=== PATIENT | male | born 1990 | race Caucasian/White ===

== ENCOUNTER 2017-04-08 04:09 | Emergency (ER) | payer BC, OTHER ==
[~2017-04-08] VITALS: Ht 172.7 cm; Wt 80.0 kg
[2017-04-08 04:12] VITALS: Ht 172.7 cm; Wt 80.0 kg
[2017-04-08] MEDS ORDERED: LIDOCAINE 1%/EPI 30 ML INJ INJ STA (04:52)
[2017-04-08] MEDS ORDERED: DIPHTH/TET/ACEL PERTUSS (ADULT) 0.5 ML VIAL IM ONE (05:00)
[2017-04-08] MEDS ORDERED: CEPH-443 PO (05:33)
--- NOTE | 2017-04-08 05:33 | ERD ---
ER Documentation Chief Complaint Date/Time DATE: 04/08/17 TIME: 05:33 Chief Complaint chin laceration, sp ground level fall HPI Patient is a 26-year-old male with no past medical history who presents emergency department for concerns of a laceration to his chin. Patient states that he was out at a bar when he slipped and hit his chin. Patient states that he had 3-4 alcoholic beverages. Patient states he was in the bathroom at the time. Patient states that he hit his chin on the bathroom countertop. Patient denies any nausea, vomiting, loss of consciousness. Patient states his last tetanus vaccination was within the last 5 years. Patient's friend is present with him and states that the patient is acting appropriately. Patient has no acute confusion or excessive sleepiness. Patient denies any chest pain, shortness breath, abdominal pain. ROS All systems reviewed and are negative except as per history of present illness. Medications Home Meds Active Scripts Cephalexin* (Keflex*) 500 Mg Capsule, 500 MG PO TID for 7 Days, CAP Prov:MARILYN THORNTON PA-C 04/08/17 Allergies Allergies: Coded Allergies: No Known Drug Allergies (Verified Allergy, Mild, 12/30/10) Uncoded Allergies: PORK (Allergy, Mild, 03/20/11) PMhx/Soc Medical and Surgical Hx: pt denies Medical Hx History of Surgery: Yes (Gallbladder ) Anesthesia Reaction: No Hx Neurological Disorder: No Hx Respiratory Disorders: No Hx Cardiac Disorders: No Hx Psychiatric Problems: No Hx Miscellaneous Medical Probl: No Hx Alcohol Use: Yes Hx Substance Use: No Hx Tobacco Use: No Smoking Status: Never smoker Physical Exam Vitals Vital Signs Date Time Temp Pulse Resp B/P Pulse Ox O2 Delivery O2 Flow Rate FiO2 04/08/17 06:02 98.3 72 16 122/62 100 Room Air 04/08/17 04:12 97.8 86 20 142/90 100 Physical Exam GENERAL: Well-developed, well-nourished male. Appears in no acute distress. Speaking in full sentences. HEAD: Normocephalic, atraumatic. No scalp lacerations or hematomas noted. EYES: Pupils are equally reactive bilaterally. EOMs grossly intact. No conjunctival erythema. ENT: Moist mucous membranes. No uvula deviation. No kissing tonsils. No chip teeth. Teeth intact. No trismus. NECK: Supple. No meningismus. Normal range of motion of the neck. No cervical midline tenderness. LUNG: Clear to auscultation bilaterally. No rhonchi, wheezing, rales or coarse breath sounds. HEART: Regular rate and rhythm. No murmurs, rubs or gallops. BACK: No midline tenderness. EXTREMITIES: Equal pulses bilaterally. No peripheral clubbing, cyanosis or edema. No unilateral leg swelling. NEUROLOGIC: Alert and oriented x3, cooperative. Mood and affect appropriate to situation. Cranial nerves II through XII are grossly intact. Normal speech. Motor exam: 5/5 strength in upper and lower extremities. Sensory exam: Sensation intact to light touch on all four extremities. Steady gait. No pronator drift SKIN:Curved 3 cm laceration noted to the patient's chin. Minimal active bleeding. Results 24 hrs Current Medications Medications (Trade) Dose Ordered Sig/Opal Route PRN Reason Start Time Stop Time Status Last Admin Dose Admin Diphtheria/ Tetanus/Acell Pertussis (Adacel) 0.5 ml ONCE ONCE IM 04/08/17 05:00 04/08/17 05:01 DC Lidocaine/ Epinephrine (Xylocaine 1%/ Epi (Pf)) 30 ml ONCE STAT INJ 04/08/17 04:52 04/08/17 04:54 DC 04/08/17 04:59 Procedures/MDM ED COURSE: The patient was stable throughout ED course. I kept the patient and/or family informed of laboratory and diagnostic imaging results throughout the ED course. DIAGNOSTIC IMAGING: Read by radiologist. Patient: TROY ORELLANA : 1990 Age: 26 Sex: M [id number] DOS: 04/08/17 0440 Ordering MD: MARILYN THORNTON PA-C Location: E Room/Bed: PROCEDURE: CT BRAIN WITHOUT CONTRAST CLINICAL INDICATION: 26-year-old male with trauma. TECHNIQUE: The study was performed utilizing a ElpasT 64-slice CT scanner. Direct axial sections were obtained from the foramen magnum to the vertex without the use of intravenous contrast material. Sagittal and coronal reformations were obtained. One or more the following dose reduction techniques were utilized: automated exposure control, adjustment of the mA and/or kV according to patient's size or use of iterative reconstruction technique. The images were viewed on a PACS workstation. CTD/vol = 43.9 mGy; Total Exam DLP = 720.2 mGy-cm. COMPARISON: None. FINDINGS: The ventricles have a normal size, shape and position. There is no evidence for mass effect or midline shift. There are no intracranial areas of abnormal attenuation. There is no evidence for acute intra or extra-axial blood. The bony calvarium is intact. The partially visualized paranasal sinuses and mastoid air cells are without significant abnormal soft tissue. IMPRESSION: Unremarkable noncontrast CT scan of the brain. .Joao Hernandez MD, MD Date Time Electronically viewed and signed by .Joao Hernandez MD, MD on 04/08/2017 05:47 .M/ CC: MARILYN THORNTON PA-C PROCEDURES: Laceration Repair: The patient was verbally consented prior to procedure. Patient was explained the risks, benefits and alternatives to this procedure. Length: 3 cm Location: chin Irrigation: Thorough irrigation was performed with normal saline and adequate pressure. Inspection: The wound was thoroughly explored and no foreign bodies, deep tissue , tendon or structural injuries were noted. Anesthesia: 5 cc lidocaine with epi Repair: The area was prepared and draped in the usual sterile manner with the wound exposed. 5 sutures were placed with good wound closure and wound approximation. Bleeding was minimal. The patient tolerated the procedure well with no complications. The wound was dressed with bacitracin and sterile gauze. The patient was neurovascularly intact post-procedure. Post-procedural wound care was discussed with the patient. MEDICAL DECISION MAKING: This is a 26-year-old male presents with a laceration to his chin after slip and fall injury while in the bathroom at a bar. Vital signs were reviewed. Patient was afebrile. The wound was cleansed thoroughly and closed using 5 sutures. The patient had good wound closure and wound approximation. Patient tolerated wound closure without any complications. Patient reported that his last tetanus vaccination was within the last 5 years. Tetanus appears to be up- to-date at this time. Even that patient did hit his head, CT scan of the patient's head was obtained. CT scan was negative. Patient will be empirically treated with course of antibiotics. PRESCRIPTIONS: Keflex DISCHARGE: At this time, the patient is stable for discharge and outpatient management. Patient was discharge along with friend. Patient was able to ambulate without any difficulty. Patient was alert and oriented x3. Strict head injury return precautions discussed. Post-procedural wound care was discussed with the patient. The patient has been advised to return to the ER in 2 days for a wound check. I have instructed the patient to promptly return to the ER for any new or worsening symptoms including increasing pain, fever, warmth, redness or swelling. The patient and/or family expressed understanding of and agreement with this plan. All questions were answered. Home care instructions were provided. Departure Diagnosis: Primary Impression: Laceration Condition: Stable Patient Instructions: Laceration, All Referrals: [facility] YOU HAVE RECEIVED A MEDICAL SCREENING EXAM AND THE RESULTS INDICATE THAT YOU DO NOT HAVE A CONDITION THAT REQUIRES URGENT TREATMENT IN THE EMERGENCY DEPARTMENT. FURTHER EVALUATION AND TREATMENT OF YOUR CONDITION CAN WAIT UNTIL YOU ARE SEEN IN YOUR DOCTORS OFFICE WITHIN THE NEXT 1-2 DAYS. IT IS YOUR RESPONSIBILITY TO MAKE AN APPOINTMENT FOR FOLOW-UP CARE. IF YOU HAVE A PRIMARY DOCTOR --you should call your primary doctor and schedule an appointment IF YOU DO NOT HAVE A PRIMARY DOCTOR YOU CAN CALL OUR PHYSICIAN REFERRAL HOTLINE AT IF YOU CAN NOT AFFORD TO SEE A PHYSICIAN YOU CAN CHOSE FROM THE FOLLOWING [facility] [address]. [facility] [address] [facility] [facility] [facility] [address] [facility] [facility] [address]. [facility] [address] [facility]. [facility]. [address] [facility]. [facility] YOU HAVE RECEIVED A MEDICAL SCREENING EXAM AND THE RESULTS INDICATE THAT YOU DO NOT HAVE A CONDITION THAT REQUIRES URGENT TREATMENT IN THE EMERGENCY DEPARTMENT. FURTHER EVALUATION AND TREATMENT OF YOUR CONDITION CAN WAIT UNTIL YOU ARE SEEN IN YOUR DOCTORS OFFICE WITHIN THE NEXT 1-2 DAYS. IT IS YOUR RESPONSIBILITY TO MAKE AN APPOINTMENT FOR FOLOW-UP CARE. IF YOU HAVE A PRIMARY DOCTOR --you should call your primary doctor and schedule and appointment IF YOU DO NOT HAVE A PRIMARY DOCTOR YOU CAN CALL OUR PHYSICIAN REFERRAL HOTLINE AT . IF YOU CAN NOT AFFORD TO SEE A PHYSICIAN YOU CAN CHOSE FROM THE FOLLOWING [facility] INSTITUTIONS: [facility] [address] [place] [address] [facility] [address] [place] [address] [facility] [address] [place] [address] Additional Instructions: Return in 2 days for a wound recheck. Take antibiotics as prescribed. Strict head injury return precautions were discussed with the patient. Patient advised to return to emergency department for any new or worsening symptoms including but not limited to nausea, vomiting, acute confusion, excessive sleepiness or loss of consciousness. Call your primary care doctor TOMORROW for an appointment during the next 1-2 days.See the doctor sooner or return here if your condition worsens before your appointment time. MARILYN THORNTON PA-C Apr 08, 2017 05:33
--- NOTE | 2017-04-08 05:48 | RADRPT ---
PROCEDURE: CT BRAIN WITHOUT CONTRAST CLINICAL INDICATION: 26-year-old male with trauma. TECHNIQUE: The study was performed utilizing a GE Aqua[employer]okpeed VCT 64-slice CT scanner. Direct axia l sections were obtained from the foramen magnum to the vertex without the use of intravenous contra st material. Sagittal and coronal reformations were obtained. One or more the following dose reduct ion techniques were utilized: automated exposure control, adjustment of the mA and/or kV according t o patient's size or use of iterative reconstruction technique. The images were viewed on a PACS [place]. CTD/vol = 43.9 mGy; Total Exam DLP = 720.2 mGy-cm. COMPARISON: None. FINDINGS: The ventricles have a normal size, shape and position. There is no evidence for mass effect or midl ine shift. There are no intracranial areas of abnormal attenuation. There is no evidence for acute intra or extra-axial blood. The bony calvarium is intact. The partially visualized paranasal sinuse s and mastoid air cells are without significant abnormal soft tissue. IMPRESSION: Unremarkable noncontrast CT scan of the brain. .Joao Hernandez MD, MD Date Time Electronically viewed and signed by .Joao Hernandez MD, on 04/08/2017 05:47 .M/
[2017-04-08 06:02] VITALS: BP 122/62; PULSE 72; RESP 16; TEMP 98.3
== END 2017-04-08 06:03 | disposition home or self-care (01) ==
LOC: FTE 04:09
DX: S01.81XA Laceration without foreign body of other part of head, initial encounter (principal); R51 Headache; W01.10XA Fall on same level from slipping, tripping and stumbling with subsequent striking against unspecified object, initial encounter; Y92.192 Bathroom in other specified residential institution as the place of occurrence of the external cause
CPT/HCPCS: 70450

== ENCOUNTER 2017-04-13 14:25 | Emergency (ER) | payer BC ==
[~2017-04-13] VITALS: Wt 97.0 kg
[~2017-04-13 14:25] MED LIST: CEPH-443 PO
--- NOTE | 2017-04-13 15:39 | ERD ---
ER Documentation Chief Complaint Date/Time DATE: 04/13/17 TIME: 15:38 Chief Complaint SUTURE REMOVAL HPI 26-year-old male is here for removal of sutures from his chin that were placed 6 days ago. He has been putting Neosporin on it. He has no complaints. No fever. No bleeding or drainage. ROS All systems reviewed and are negative except as per history of present illness. Medications Home Meds Active Scripts Cephalexin* (Keflex*) 500 Mg Capsule, 500 MG PO TID for 7 Days, CAP Prov:MARILYN THORNTON PA-C 04/08/17 Allergies Allergies: Coded Allergies: No Known Drug Allergies (Verified Allergy, Mild, 12/30/10) Uncoded Allergies: PORK (Allergy, Mild, 03/20/11) PMhx/Soc History of Surgery: Yes (Gallbladder ) Anesthesia Reaction: No Hx Neurological Disorder: No Hx Respiratory Disorders: No Hx Cardiac Disorders: No Hx Psychiatric Problems: No Hx Miscellaneous Medical Probl: No Hx Alcohol Use: Yes (Social) Hx Substance Use: No Hx Tobacco Use: No Smoking Status: Never smoker FmHx Family History: No diabetes Physical Exam Vitals Vital Signs Date Time Temp Pulse Resp B/P Pulse Ox O2 Delivery O2 Flow Rate FiO2 04/13/17 14:45 98.0 83 18 129/77 99 Physical Exam Const: [] Head: Atraumatic Eyes: Normal Conjunctiva ENT: Normal External Ears, Nose and Mouth. Neck: Full range of motion..~ No meningismus. Resp: Clear to auscultation bilaterally Cardio: Regular rate and rhythm, no murmurs Skin: Ealing laceration on chin with sutures in place no surrounding erythema or edema Procedures/MDM Sutures removed without any complication. Patient counseled regarding my diagnostic impression and care plan. Prior to discharge all questions answered. Pt agrees with treatment plan and understands strict return precautions. Pt is instructed to follow up with primary care provider within 24-48 hours. Precautionary instructions provided including instructions to return to the ER if not improving or for any worsening or changing symptoms or concerns. Departure Diagnosis: Primary Impression: Encounter for removal of sutures Condition: Stable CAMERON HEWITT PA-C Apr 13, 2017 15:39
== END 2017-04-13 15:49 | disposition home or self-care (01) ==
LOC: FTE 14:25
DX: Z48.02 Encounter for removal of sutures (principal)
CPT/HCPCS: 99281